=== PATIENT | female | born 1960 | race Caucasian/White ===

== ENCOUNTER 2024-04-18 11:56 | Emergency (ER) | payer MEDICARE ==
[~2024-04-18] VITALS: Ht 162.6 cm; Wt 46.4 kg
[2024-04-18] MEDS ORDERED: LORAZEPAM INT2 MG/ML PO (12:27)
[2024-04-18] MEDS ORDERED: PRILOSEC 20MG20 MG PO (12:27)
[2024-04-18] MEDS ORDERED: OXYCODONE HCL10 M1 PO (12:27)
[2024-04-18] MEDS ORDERED: NORVASC 10MG10 MG PO (12:28)
[2024-04-18] MEDS ORDERED: STIMULANT LAXA1 EACH PO (12:28)
[2024-04-18] MEDS ORDERED: LEVOTHYROXIN0.025 MG PO (12:28)
[2024-04-18] MEDS ORDERED: CITALOPRAM40 MG PO (12:28)
[2024-04-18] MEDS ORDERED: DESYREL 100MG100 MG PO (12:29)
[2024-04-18 13:19] LABS: BASO # 0.03 K/mm3 (0.02-0.10); EOS % 1.6 % (1.0-5.0); HEMATOCRIT 42.5 % (37.0-47.0); HEMOGLOBIN 13.9 g/dL (12.5-16.0); MEAN CELL VOLUME 98 fl (78-100); MEAN CORPUSCULAR HEMOGLOBIN 32 pg (27-31); MEAN CORPUSCULAR HGB CONC 33 g/dL (33-37); MEAN PLATELET VOLUME 9.1 fl (7.4-10.4); MONO # 0.39 K/mm3 (0.20-0.80); NEU # 2.94 K/mm3 (1.40-6.50); PLATELET COUNT 372 K/mm3 (130-400); RED BLOOD COUNT 4.34 M/mm3 (4.10-5.30); RED CELL DISTRIBUTION WIDTH 13.3 % (11.5-14.5); WHITE BLOOD COUNT 6.3 K/mm3 (4.8-10.8)
[2024-04-18 13:24] LABS: ALBUMIN 4.3 g/dL (3.4-4.8)
[2024-04-18 13:27] LABS: TOTAL PROTEIN 6.5 g/dL (6.2-8.1)
[2024-04-18 13:29] LABS: TOTAL BILIRUBIN 0.5 mg/dL (0.2-1.2)
[2024-04-18 14:28] VITALS: BP 127/68
== END 2024-04-18 14:29 | disposition home or self-care (01) ==
LOC: ED 11:56
PROVIDERS: Physician Assistant
DX: C34.90 Malignant neoplasm of unspecified part of unspecified bronchus or lung (principal); R51.9 Headache, unspecified; R26.89 Other abnormalities of gait and mobility; R41.0 Disorientation, unspecified

== ENCOUNTER 2024-06-29 12:26 | Emergency (ER) | payer MEDICARE ==
[~2024-06-29] VITALS: Ht 157.5 cm; Wt 46.4 kg
[~2024-06-29 12:26] MED LIST: CITALOPRAM40 MG PO; DESYREL 100MG100 MG PO; LEVOTHYROXIN0.025 MG PO; LORAZEPAM INT2 MG/ML PO; NORVASC 10MG10 MG PO; OXYCODONE HCL10 M1 PO; PRILOSEC 20MG20 MG PO; STIMULANT LAXA1 EACH PO
[2024-06-29] MEDS ORDERED: NS 1,000 ML IV ONE (12:45)
[2024-06-29 13:25] LABS: HEMATOCRIT 42.4 % (37.0-47.0); HEMOGLOBIN 13.9 g/dL (12.5-16.0); MEAN CELL VOLUME 97 fl (78-100); MEAN CORPUSCULAR HEMOGLOBIN 32 pg (27-31); MEAN CORPUSCULAR HGB CONC 33 g/dL (33-37); MEAN PLATELET VOLUME 9.2 fl (7.4-10.4); PLATELET COUNT 342 K/mm3 (130-400); RED BLOOD COUNT 4.36 M/mm3 (4.10-5.30); RED CELL DISTRIBUTION WIDTH 13.3 % (11.5-14.5); WHITE BLOOD COUNT 4.7 K/mm3 (4.8-10.8)
[2024-06-29] MEDS ORDERED: Albuterol/Ipratropium 3 MG-0.5 MG/3 ML Neb Soln IH ONE (13:30)
[2024-06-29 13:31] LABS: ALBUMIN 4.1 g/dL (3.4-4.8); SODIUM 143 mmol/L (136-145)
[2024-06-29 13:32] LABS: CALCIUM 8.9 mg/dL (8.3-10.5)
[2024-06-29 13:34] LABS: GLUCOSE 97 mg/dL (65-105); TOTAL PROTEIN 6.6 g/dL (6.2-8.1)
[2024-06-29 13:35] LABS: CARBON DIOXIDE 25 mmol/L (23-31); TOTAL BILIRUBIN 0.3 mg/dL (0.2-1.2)
[2024-06-29 13:39] LABS: AST-SGOT 15 U/L (5-34)
[2024-06-29 13:41] LABS: ALCOHOL IN-HOUSE < 10 mg/dL (<10); ALT/SGPT 17 U/L (0-55)
[2024-06-29 13:50] LABS: TROPONIN-I < 0.030 ng/mL (0.00-0.033)
[2024-06-29] MEDS ORDERED: Iohexol 300 - 100 ML VIAL IV ONE (13:51)
[2024-06-29 14:11] LABS: BAND 1 % (0-10); LYMPHOCYTE 59 % (20-51); MONOCYTE 11 % (3-10); NEUTROPHILS 19 % (42-75)
[2024-06-29] MEDS ORDERED: RT ALBUTEROL CC18 GM IH (14:37)
[2024-06-29 14:57] VITALS: BP 151/69
== END 2024-06-29 14:57 | disposition home or self-care (01) ==
LOC: ED 12:26
PROVIDERS: Family Medicine
DX: J44.1 Chronic obstructive pulmonary disease with (acute) exacerbation (principal); C34.90 Malignant neoplasm of unspecified part of unspecified bronchus or lung; F19.90 Other psychoactive substance use, unspecified, uncomplicated; D72.819 Decreased white blood cell count, unspecified; F17.210 Nicotine dependence, cigarettes, uncomplicated; Z79.899 Other long term (current) drug therapy
CPT/HCPCS: J7030; Q9967